=== PATIENT | female | born 1980 | race Caucasian/White ===

== ENCOUNTER 2017-08-12 19:09 | Emergency (ER) | payer OTHER ==
[2017-08-12 19:17] VITALS: BP 154/87; PULSE 96; RESP 20; TEMP 98.5; O2SAT 96
[2017-08-12] MEDS ORDERED: HTN MED (19:25)
[2017-08-12] MEDS ORDERED: FLUC150T PO (19:53)
[2017-08-12] MEDS ORDERED: CLOTCRE TOPICAL (19:53)
--- NOTE | 2017-08-12 19:54 | PD ---
HPI Chief Complaint: Skin Problem Time Seen by Provider: 19:27 Travel History International Travel<30 days: No Contact w/Intl Traveler<30days: No Traveled to known affect area: No History of Present Illness HPI 37-year-old female presents to the emergency department for evaluation of skin rash under her left breast and slightly under her right breast. She states she has a history of this, but not this bad. She has used Desitin and a and D ointment [id number] without improvement. Patient denies any fevers or chills. Current pain is 4/10, aching and burning, without radiation. Mild severity. PFSH Past Medical History Hypertension: Yes ?: Not LMP: 08/12/17 Past Surgical History Appendectomy: Yes Social History Alcohol Use: No Tobacco Use: No Substance Use: No Allergies-Medications (Allergen,Severity, Reaction): Coded Allergies: No Known Allergies (Unverified , 08/12/17) Reported Meds & Prescriptions Reported Meds & Active Scripts Active Reported [Htn Med] Review of Systems Except as stated in HPI: all other systems reviewed are Neg Physical Exam Narrative GENERAL: Well-nourished, well-developed female patient, afebrile. SKIN: Focused skin assessment warm/dry. Patient has Alexsandra rash under bilateral breasts, worse than the left. No evidence of cellulitis. HEAD: Normocephalic. Atraumatic EYES: No scleral icterus. No injection or drainage. NECK: Supple, trachea midline. No JVD or lymphadenopathy. CARDIOVASCULAR: Regular rate and rhythm without murmurs, gallops, or rubs. RESPIRATORY: Breath sounds equal bilaterally. No accessory muscle use. Lung sounds are clear to auscultation. GASTROINTESTINAL: Abdomen soft, non-tender, nondistended. MUSCULOSKELETAL: No cyanosis, or edema. Data Data Last Documented VS Vital Signs Date Time Temp Pulse Resp B/P (MAP) Pulse Ox O2 Delivery O2 Flow Rate FiO2 08/12/17 19:17 98.5 96 20 154/87 (109) 96 MDM Medical Decision Making Medical Screen Exam Complete: Yes Emergency Medical Condition: Yes Medical Record Reviewed: Yes Differential Diagnosis Alexsandra intertrigo versus cellulitis vs. tinea corporis Narrative Course 37-year-old female presents to the emergency department for evaluation of rash under her bilateral breasts, worse on the left. Physical exam is consistent with Alexsandra intertrigo. Patient will be discharged prescription for clobetasol /betamethasone cream as well as a dose of flucanazole. She is instructed to follow with her primary care physician. The patient was discharged in stable condition with instructions, including return instructions and follow up instructions. Diagnosis Primary Impression: Candidiasis, intertrigo Referrals: Primary Care Physician call for appointment Patient Instructions: General Instructions, Skin Yeast Infection (ED) Additional Instructions: Use clotrimazole/betamethasone cream as directed. Take fluconazole. Follow-up with your primary care physician for further evaluation. Return to the emergency department for any acute worsening of symptoms. Med/Other Pt SpecificInfo: Prescription(s) given Scripts Clotrimazole-Betamethasone Topical (Clotrimazole-Betamethasone Topical) 1-0.05% Cream 1 APPLIC TOPICAL BID for Fungal Infection, #45 GM 0 Refills Prov: Olimpia Regalado 08/12/17 Fluconazole (Fluconazole) 150 Mg Tab 150 MG PO ONCE for Infection, #1 TAB 0 Refills Prov: Olimpia Regalado 08/12/17 Disposition: 01 DISCHARGE HOME Condition: Stable Olimpia Regalado August 12, 2017 19:54
== END 2017-08-12 20:16 | disposition home or self-care (01) ==
LOC: PHEFT 19:09
DX: B37.2 Candidiasis of skin and nail (principal); I10 Essential (primary) hypertension
CPT/HCPCS: 99283